=== PATIENT | male | born 1970 | race Hispanic/Latino ===

== ENCOUNTER 2024-03-25 04:37 | Inpatient (IN) | payer SELFPAY ==
[2024-03-25] MEDS ORDERED: Ondansetron PF 4 MG/2 ML Vial ONE (04:53)
[2024-03-25] MEDS ORDERED: Lorazepam 2 MG/ML VIAL ONE (04:53)
[2024-03-25] MEDS ORDERED: Famotidine/PF 20 mg/2ml Vial ONE (04:55)
[2024-03-25 05:17] LABS: #Basophils 0.05 10x3/uL (0.0-0.2); #Eosinphils 0.02 10x3/uL (0.0-0.5); #Monocytes 0.63 10x3/uL (0.0-1.1); #Neutrophils 5.38 10x3/uL (1.5-8.4); %Basophils 0.6 % (0.0-2.0); %Eosinophils 0.2 % (0.0-6.0); %Lymphocytes 29.7 % (18.0-47.0); %Monocytes 7.3 % (0.0-10.0); Hematocrit 44.5 % (38.8-50.0); Hemoglobin 16.6 g/dL (13.5-17.5); Mean Corpuscular HGB CONC 37.3 g/dL (32.0-36.0); Mean Corpuscular Volume 88.5 fl (81.2-95.1); Mean Platelet Volume 8.6 fl (7.4-10.4); Platelet Count 296 10x3/uL (150-450); RBC Distribution Width 12.6 % (11.5-14.5); Red Blood Cell (RBC) Count 5.03 10x6/uL (4.32-5.72); White Blood Cell (WBC) Count 8.7 10x3/uL (3.5-10.5)
[2024-03-25 05:29] LABS: ALT (SGPT) 39 U/L (8-55); AST (SGOT) 62 U/L (5-34); Acetaminophen Less than 10 mcg/mL (10.0-30.0); Alcohol Less than 10.0 mg/dL (Less than 10); Alkaline Phosphatase 109 U/L (40-110); Anion Gap 21 mmol/L (10-20); BUN (Urea Nitrogen) 11 mg/dL (8.4-25.7); Calc. Creatinine Clearance 0 mL/min (70-130); Calcium 9.3 mg/dL (7.8-10.44); Carbon Dioxide 18 mmol/L (22-29); Chloride 98 mmol/L (98-107); Estimated GFR 101; Globulin 4.6 g/dL (2.4-3.5); Glucose 131 mg/dL (70-105); Lipase 337 U/L (8-78); Magnesium 1.5 mg/dL (1.6-2.6); Potassium 3.4 mmol/L (3.5-5.1); Protein, Total 8.6 g/dL (6.0-8.3); Salicylate Less than 8.0 mg/dL (15.0-30.0); Sodium 134 mmol/L (136-145)
[2024-03-25 05:35] LABS: Troponin I Less than 0.010 ng/mL (< 0.028)
[2024-03-25] MEDS ORDERED: Calcium Carbonate 500 MG ChewTAB PO PRN (06:05)
[2024-03-25] MEDS ORDERED: Ondansetron PF 4 MG/2 ML Vial IVP PRN (06:05)
[2024-03-25] MEDS ORDERED: Guaifenesin DM 100-10/5 ML UDCUP PO PRN (06:05)
[2024-03-25] MEDS ORDERED: Thiamine HCl 200 MG/2 ML VIAL ONE (06:08)
[2024-03-25] MEDS ORDERED: Magnesium Sulfate/D5W 1 GM/100 ML BAG IVPB SCH (06:15)
[2024-03-25] MEDS ORDERED: Sodium Chloride 0.9% 1,000 ML IV SCH (06:15)
[2024-03-25] MEDS ORDERED: Morphine 2 MG/ML VIAL SLOW IVP PRN (06:19)
[2024-03-25 07:03] LABS: Bilirubin Neg (Negative); Blood, Urine Negative (Negative); Glucose, Urine (Dipstick) Normal (Negative); Ketone, Urine Negative (Negative); Leukocyte Negative (Negative); Nitrite Negative (Negative); Protein, Urine (Dipstick) Negative (Neg-Trace); Urobilinogen Normal mg/dL (Less than 2); pH, Urine 6.5 (5.0-9.0)
[2024-03-25 07:04] LABS: Clarity Clear (Clear)
[2024-03-25 07:16] LABS: Bacteria/HPF Rare-Few HPF (None Seen); CAUTI Indications for Culture Pelvic or flank pain; RBC/HPF 0-3 HPF (0-3); Squamous Epithelial 0-3 HPF (0-3); WBC/HPF None Seen HPF (0-3)
[2024-03-25 07:17] LABS: Urine Culture Reflex No No
[2024-03-25 08:46] LABS: Lactic Acid 3.3 mmol/L (0.5-2.2)
[2024-03-25] MEDS: Thiamine 100 MG TAB PO SCH (09:00)
[2024-03-25] MEDS: Amlodipine 5 MG TAB PO SCH (09:00)
[2024-03-25] MEDS: Folic Acid 1 MG TAB PO SCH (09:00)
[2024-03-25] MEDS: chlordiazePOXIDE HCl 25 MG CAP PO SCH (09:00)
[2024-03-25] MEDS: Famotidine/PF 20 mg/2ml Vial SLOW IVP SCH (09:00)
[2024-03-25] MEDS: Potassium Chloride 20 MEQ TAB PO SCH (09:02)
[2024-03-25] MEDS: Magnesium 2 GM/50 ML(in water) 2 GM in Premix 1 BAG IVPB SCH ×2 (09:02→09:13)
[2024-03-25] MEDS: Thiamine HCl 200 MG/2 ML VIAL SLOW IVP SCH (09:02)
[2024-03-25] MEDS: Losartan 50 MG TAB PO SCH (09:07)
[2024-03-25] MEDS: Lactated Ringer's 1,000 ML IV SCH (09:13)
[2024-03-25] MEDS: Multivitamin W/ Minerals 1 TAB PO SCH (09:13)
[2024-03-25 09:51] LABS: Lactic Acid 3.5 mmol/L (0.5-2.2)
[2024-03-25] MEDS ORDERED: Iopamidol 300 61% 100 ML VIAL FS ONE (10:33)
[2024-03-25 18:30] LABS: Lactic Acid 4.7 mmol/L (0.5-2.2)
[2024-03-25 19:05] VITALS: BMI 29.4
[2024-03-25] MEDS: Enoxaparin 40 MG (0.4 mL) SYRINGE SC SCH (20:56)
[2024-03-25] MEDS: HYDROcodone/Acetaminophen 5/325 mg Tablet PO PRN (20:56)
[2024-03-26 03:27] LABS: #Basophils 0.04 10x3/uL (0.0-0.2); #Eosinphils 0.08 10x3/uL (0.0-0.5); #Monocytes 0.51 10x3/uL (0.0-1.1); #Neutrophils 3.75 10x3/uL (1.5-8.4); %Basophils 0.6 % (0.0-2.0); %Eosinophils 1.1 % (0.0-6.0); %Lymphocytes 37.3 % (18.0-47.0); %Monocytes 7.3 % (0.0-10.0); %Neutrophils 53.4 % (40.0-75.0); Hematocrit 37.4 % (38.8-50.0); Hemoglobin 13.1 g/dL (13.5-17.5); Mean Corpuscular Volume 91.2 fl (81.2-95.1); Platelet Count 192 10x3/uL (150-450); RBC Distribution Width 12.8 % (11.5-14.5)
[2024-03-26 03:57] LABS: ALT (SGPT) 23 U/L (8-55); AST (SGOT) 30 U/L (5-34); Albumin 3.1 g/dL (3.5-5.0); Alkaline Phosphatase 87 U/L (40-110); Anion Gap 14 mmol/L (10-20); BUN (Urea Nitrogen) 7 mg/dL (8.4-25.7); Bilirubin, Total 1.5 mg/dL (0.2-1.2); CK (CPK) 54 U/L (30-200); Calc. Creatinine Clearance 123 mL/min (70-130); Calcium 8.6 mg/dL (7.8-10.44); Carbon Dioxide 21 mmol/L (22-29); Chloride 101 mmol/L (98-107); Estimated GFR 109; Globulin 3.7 g/dL (2.4-3.5); Glucose 118 mg/dL (70-105); Lipase 334 U/L (8-78); Magnesium 1.9 mg/dL (1.6-2.6); Potassium 3.5 mmol/L (3.5-5.1); Protein, Total 6.8 g/dL (6.0-8.3); Sodium 132 mmol/L (136-145)
[2024-03-26 04:25] LABS: Cardiac Risk 3.9 (Less than 4.5); Cholesterol 144 mg/dl (< 200 Desired); HDL Cholesterol 37 mg/dL (>60 Neg Risk); Triglycerides 470 mg/dL (Less than 150)
[2024-03-26 09:44] LABS: Lactic Acid 3.8 mmol/L (0.5-2.2)
[2024-03-26] MEDS: Lactated Ringer's 1,000 ML IV SCH ×2 (10:52→14:23)
[2024-03-26 13:35] LABS: Lactic Acid 2.4 mmol/L (0.5-2.2)
[2024-03-26 15:02] LABS: Lactic Acid 2.5 mmol/L (0.5-2.2)
[2024-03-26] MEDS ORDERED: Labetalol HCl 100 MG/20 ML VIAL SLOW IVP PRN (15:33)
[2024-03-26] MEDS: Amlodipine 5 MG TAB PO SCH (16:10)
[2024-03-26] MEDS: Labetalol HCl 100 MG/20 ML VIAL SLOW IVP SCH (16:11)
[2024-03-26] MEDS: hydrALAZINE 25 MG TAB PO SCH (16:11)
[2024-03-26] MEDS: Lorazepam 2 MG/ML VIAL SLOW IVP PRN (16:14)
[2024-03-27] MEDS: Acetaminophen 325 MG TAB PO PRN (00:09)
[2024-03-27] MEDS: hydrALAZINE 25 MG TAB PO SCH (09:35)
[2024-03-27] MEDS: Amlodipine 10 MG TAB PO SCH (09:36)
[2024-03-27 10:14] LABS: Anion Gap 16 mmol/L (10-20); BUN (Urea Nitrogen) 5 mg/dL (8.4-25.7); Calc. Creatinine Clearance 122 mL/min (70-130); Calcium 9.1 mg/dL (7.8-10.44); Carbon Dioxide 22 mmol/L (22-29); Chloride 94 mmol/L (98-107); Estimated GFR 108; Glucose 209 mg/dL (70-105); Lactic Acid 2.1 mmol/L (0.5-2.2); Potassium 3.1 mmol/L (3.5-5.1); Sodium 129 mmol/L (136-145)
[2024-03-27] MEDS: Lactated Ringer's 1,000 ML IV SCH (12:11)
[2024-03-27 12:56] VITALS: BP 173/99; TEMP 97.9
== END 2024-03-27 14:37 | disposition home or self-care (01) | DRG 896 ==
LOC: CSHERS 04:37 → CSHTELE 07:28 → OBSVTOIN 03-26 15:33
PROVIDERS: ADMIT Student in an Organized Health Care Education/Training Program; ATTEND Internal Medicine
DX: F10.139 Alcohol abuse with withdrawal, unspecified (principal); K85.20 Alcohol induced acute pancreatitis without necrosis or infection; E87.20 Acidosis, unspecified; E87.6 Hypokalemia; I10 Essential (primary) hypertension; E83.42 Hypomagnesemia; Z71.41 Alcohol abuse counseling and surveillance of alcoholic
CPT/HCPCS: 36415; 71045; 74177; 80048; 80053; 80061; 80307; 81001; 82550; 83605; 83690; 83735; 84484; 85025; 93005; 96372; 96375; 96376; G0378; J1650; J2060; J2405; J3411; J3475; J7050; J7120; Q9967; S0028

== ENCOUNTER 2025-09-14 19:53 | Emergency (ER) | payer SELFPAY ==
[2025-09-14 20:25] LABS: #Basophils 0.05 10x3/uL (0.0-0.2); #Eosinophils 0.05 10x3/uL (0.0-0.5); #Monocytes 0.41 10x3/uL (0.0-1.1); #Neutrophils 5.06 10x3/uL (1.5-8.4); %Basophils 0.6 % (0.0-2.0); %Eosinophils 0.6 % (0.0-6.0); %Lymphocytes 31.7 % (18.0-47.0); %Monocytes 5.0 % (0.0-10.0); %Neutrophils 61.9 % (40.0-75.0); Hematocrit 39.4 % (38.8-50.0); Hemoglobin 14.2 g/dL (13.5-17.5); Mean Corpuscular Hemoglobin 31.4 pg (27.0-33.0); Mean Corpuscular Volume 87.2 fL (81.2-95.1); Platelet Count 256 10x3/uL (150-450); Red Blood Cell (RBC) Count 4.52 10x6/uL (4.32-5.72); White Blood Cell (WBC) Count 8.19 10x3/uL (3.5-10.5)
[2025-09-14 20:36] LABS: ALT (SGPT) 39 U/L (Less than 45); AST (SGOT) 73 U/L (11-34); Albumin 4.5 g/dL (3.1-4.5); Alkaline Phosphatase 108 U/L (40-110); Anion Gap 16 mmol/L (10-20); BUN (Urea Nitrogen) 5 mg/dL (8.4-25.7); Bilirubin, Total 1.9 mg/dL (0.3-1.2); Calc. Creatinine Clearance 0 mL/min (70-130); Calcium 9.4 mg/dL (7.8-10.44); Carbon Dioxide 23 mmol/L (22-29); Chloride 98 mmol/L (98-107); Globulin 3.8 g/dL (2.4-3.5); Glucose 128 mg/dL (70-105); Potassium 3.3 mmol/L (3.5-5.1); Sodium 134 mmol/L (136-145)
[2025-09-14 20:42] LABS: Troponin I Less than 0.010 ng/mL (< 0.028)
[2025-09-14] MEDS ORDERED: Milk Of Magnesia 30 ML UDCUP ONE (21:34)
[2025-09-14] MEDS ORDERED: Lidocaine Viscous Sol 2% 15 ml UD Cup ONE (21:35)
== END 2025-09-14 22:13 | disposition home or self-care (01) ==
LOC: CSHERS 19:53
DX: K29.20 Alcoholic gastritis without bleeding (principal)
CPT/HCPCS: 71045; 80053; 83690; 84484; 85025; 93005; 94760